=== PATIENT | male | born 1985 | race Caucasian/White ===

== ENCOUNTER 2018-06-15 19:00 | Emergency (ER) | payer SELFPAY ==
[~2018-06-15] VITALS: Ht 177.8 cm; Wt 101.4 kg
[2018-06-15 19:21] VITALS: Ht 177.8 cm; Wt 101.4 kg
[2018-06-15 21:44] VITALS: BP 107/52
== END 2018-06-15 21:40 | disposition home or self-care (01) ==
LOC: ED 19:00
DX: M53.3 Sacrococcygeal disorders, not elsewhere classified (principal); R55 Syncope and collapse; W19.XXXA Unspecified fall, initial encounter; Y93.89 Activity, other specified; Y92.89 Other specified places as the place of occurrence of the external cause; Y99.8 Other external cause status
CPT/HCPCS: J1885